=== PATIENT | female | born 1935 | race Caucasian/White ===

== ENCOUNTER 2016-09-30 15:50 | Emergency (ER) | payer OTHER, BC ==
[~2016-09-30] VITALS: Ht 160 cm; Wt 90.0 kg
[~2016-09-30 15:50] MED LIST: ALBUTEROL SULFAT4 MG PO; ASPIRIN81 M1 PO; Ambien PO; BENAZEPRIL HCL20 MG PO; CARBAMAZEPINE200 MG PO; CELEBREX200 MG PO; FELODIPINE ER5 MG PO; LEVOTHROID,S0.125 MG PO; NEXIUM40 MG PO; NORTRIPTYLINE H50 MG PO; PRAVASTATIN SOD40 MG PO; TEGretol PO; Tylenol Regular Stre PO; WOMENS MULTIPL1 EACH PO
[2016-09-30] MEDS ORDERED: LIDODERM 5% P1 PATCH TD (18:36)
[2016-09-30] MEDS ORDERED: STOOL SOFTENER250 MG PO (18:36)
[2016-09-30] MEDS ORDERED: NORCO 5/3251 TABLET PO (18:36)
[2016-09-30 18:52] VITALS: BP 144/71
== END 2016-09-30 18:54 | disposition home or self-care (01) ==
LOC: EME 15:50 → RME 15:50
DX: M70.71 Other bursitis of hip, right hip (principal); G89.18 Other acute postprocedural pain; M25.551 Pain in right hip; I10 Essential (primary) hypertension; E78.5 Hyperlipidemia, unspecified; K21.9 Gastro-esophageal reflux disease without esophagitis; J45.909 Unspecified asthma, uncomplicated; F41.9 Anxiety disorder, unspecified; Z96.653 Presence of artificial knee joint, bilateral; Z87.891 Personal history of nicotine dependence
CPT/HCPCS: 73502; 99281; 99284; J1885